=== PATIENT | male | born 1995 | race Caucasian/White ===

== ENCOUNTER → 2016-09-03 | Outpatient (CLI) | payer OTHER ==
--- NOTE | 2016-09-05 06:51 | ECHO ---
DATE OF SERVICE: 09/03/2016 AGE: 20 REFERRING PROVIDER: Desmond Bender PATIENT LOCATION: Outpatient REASON FOR ECHOCARDIOGRAM: Abnormal EKG. 2D MEASUREMENTS: IVS: 0.81 cm LV: 4.4 cm LVPW: 0.75 cm LA: 3.0 cm Aorta: 2.9 cm IVC: 2.2 cm DOPPLER MEASUREMENTS: Peak velocity across the aortic valve: 0.99 m/s Peak velocity across the LVOT: 0.82 m/s Mitral E: 1.1 Mitral A: 0.58 with a ratio of 1.9 2D COMMENTS: 1. Normal left ventricular size, wall thickness and normal global left ventricular systolic function estimated at 60-65%. 2. Normal left atrium. Normal right atrium and the left ventricle. 3. The atrial septum appeared to be normal without evidence of defect or shunt. 4. Normal aortic root. 5. No pericardial effusions seen. 6. The aortic valve, mitral valve, tricuspid valve, and pulmonic valve appear to be normal. The proximal pulmonary artery branches also appear to be normal. 7. The inferior vena cava was mildly enlarged, central venous pressure mildly elevated. Doppler, it detects trace mitral regurgitation, and trace tricuspid regurgitation. The calculated pulmonary artery systolic pressure was normal. Tricuspid valve velocity was less than 0.20 m/s. Assessment of the left ventricular systolic function was normal. IMPRESSION: 1. Normal global left ventricular systolic and diastolic function. 2. Trace mitral regurgitation. 3. Trace mitral regurgitation. 4. Trace tricuspid regurgitation with a normal calculated pulmonary artery systolic pressure. 5. The inferior vena cava was mildly enlarged.
== END ==
LOC: M CARPUL 10:27
PROVIDERS: ATTEND Nurse Practitioner Family
DX: R94.31 Abnormal electrocardiogram [ECG] [EKG] (principal)